=== PATIENT | male | born 1970 | race Caucasian/White ===

== ENCOUNTER → 2016-06-21 | Outpatient (CLI) | payer BC ==
--- NOTE | 2016-06-21 14:46 | US ---
EXAMINATION TYPE: US thyroid st tissue head/neck DATE OF EXAM: 06/21/2016 2:29 PM COMPARISON: NONE CLINICAL HISTORY: E04.9 Goiter. Pt states possible thyroid enlargement seen on outside MRI GLAND SIZE: Right Lobe: 5.5 x 3.0 x 2.9 cm Overall Parenchyma: homogenous Left Lobe: 4.2 x 1.7 x 1.9 cm Overall Parenchyma: homogeneous Isthmus Thickness: 0.4 cm NODULES RIGHT: # of nodules measured on right: 1 1. 3.2 X 2.9 x 2.5 cm isoechoic solid nodule at the lower pole with well-defined margins; This nodu le is wider than tall and shows intranodular vascularity. Prior size: No prior LEFT: # of nodules measured on left: 0 ISTHMUS: # of nodules measured in the isthmus: 0 IMPRESSION: Bilateral neck scanned, no abnormal lymphadenopathy noted. Single, large right thyroid n odule
== END | disposition home or self-care (01) ==
LOC: RADUSWWP 14:10
PROVIDERS: ATTEND Family Medicine
DX: E04.1 Nontoxic single thyroid nodule (principal)
CPT/HCPCS: 76536

== ENCOUNTER → 2016-07-01 | Outpatient (CLI) | payer BC ==
--- NOTE | 2016-07-01 14:23 | NM ---
EXAMINATION TYPE: NM thyroid image only DATE OF EXAM: 07/01/2016 11:29 AM COMPARISON: Ultrasound 06/21/2016 HISTORY: 46-year-old male swelling, mass, palpable abnormality of the head and neck TECHNIQUE: After the intravenous administration of 10.68 mCi Tc 99m Sodium Pertechnetate thyroid imag ing performed in the anterior and oblique projections. FINDINGS: There is a large cold defect involving the mid to lower right thyroid lobe corresponding to the known right thyroid lobe nodule. Remainder of the gland shows homogeneous uptake. No additional abnormalit ies are seen. IMPRESSION: Cold defect corresponding to the known right lobe nodule. FNA can be considered.
== END | disposition home or self-care (01) ==
LOC: RADNMMAIN 10:44
PROVIDERS: ATTEND Surgery
DX: R22.0 Localized swelling, mass and lump, head (principal)
CPT/HCPCS: 84439; 84481; 84443; 78013; A9512

== ENCOUNTER → 2016-07-04 | Outpatient (CLI) | payer BC ==
--- NOTE | 2016-07-04 08:00 | MR ---
EXAMINATION TYPE: MR knee LT wo con DATE OF EXAM: 07/04/2016 7:41 AM COMPARISON: NONE HISTORY: Left knee unspecified internal derangement TECHNIQUE: Multiplanar, multisequence imaging of the left knee is performed without IV contrast. FINDINGS: MEDIAL MENISCUS: Anterior and posterior horns are intact without tear. Mild myxoid degeneration poste rior horn. LATERAL MENISCUS: Anterior and posterior horns are intact without tear.Mild myxoid degeneration poste rior horn. CRUCIATE LIGAMENTS: The anterior and posterior cruciate ligaments are intact and unremarkable. COLLATERAL LIGAMENTS: The medial collateral ligament and lateral collateral ligament complex are inta ct and unremarkable. EXTENSOR MECHANISM: Visualized quadriceps and patellar tendons are intact. EFFUSION: No significant suprapatellar joint effusion. POPLITEAL CYST: No popliteal/roper cyst. TRICOMPARTMENT SPACES: Intact CARTILAGE: Intact BONE MARROW SIGNAL: No focal abnormal marrow signal is appreciated. OTHER: No additional significant abnormality is appreciated. 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 Overall no significant abnormality appreciated.
== END | disposition home or self-care (01) ==
LOC: RADMRIMAIN 06:59
PROVIDERS: ATTEND Family Medicine
DX: M23.306 Other meniscus derangements, unspecified meniscus, right knee (principal)

== ENCOUNTER 2016-07-10 12:05 | Day surgery (SDC) | payer BC ==
[2016-07-10 12:31] VITALS: RESP 14; TEMP 98.3
--- NOTE | 2016-07-10 13:27 | US ---
ULTRASOUND GUIDED FNA THYROID BIOPSY: CLINICAL HISTORY: Right thyroid nodule FINDINGS: The procedure was explained to the patient. The risks, complications, benefits and alternatives were discussed and any questions were answered. Informed consent was obtained. Patient was placed supin e on the ultrasound table and prepped and draped in the usual sterile fashion. Utilizing a 25 gauge needle, five passes were made into the 3.2 cm right thyroid nodule. Patient was stable throughout the procedure. Pathology is pending. All elements of maximal barrier technique were utilized. IMPRESSION: 1. Successful ultrasound guided FNA thyroid biopsy.
[2016-07-10 13:43] VITALS: BP 156/98; PULSE 78
== END 2016-07-10 13:40 | disposition home or self-care (01) ==
LOC: RADPROMAIN 12:05
PROVIDERS: ATTEND Surgery
DX: E04.1 Nontoxic single thyroid nodule (principal)
CPT/HCPCS: 10022; 76942; 88173; 88305

== ENCOUNTER → 2017-06-24 | Outpatient (CLI) | payer BC ==
--- NOTE | 2017-06-24 14:17 | US ---
EXAMINATION TYPE: US thyroid st tissue head/neck DATE OF EXAM: 06/24/2017 COMPARISON: 06/21/2016 CLINICAL HISTORY: E04.1 THYROID NODULE. Follow up nodule, Hx of biopsy= neg GLAND SIZE: Right Lobe: 5.4 x 2.9 x 3.1 cm Overall Parenchyma: heterogenous Left Lobe: 4.1 x 1.9 x 1.9 cm Overall Parenchyma: homogeneous Isthmus Thickness: 0.2 cm NODULES RIGHT: # of nodules measured on right: 1 1. 3.0 X 2.7 x 2.9 cm isoechoic solid nodule at the lower pole with well-defined margins. This nod ule is taller than wide and shows intranodular vascularity. Prior size: 3.2 x 2.9 x 2.5 cm LEFT: # of nodules measured on left: 0 ISTHMUS: # of nodules measured in the isthmus: 0 Bilateral neck scanned, no evidence of lymphadenopathy. IMPRESSION: Stable solid right thyroid nodule. Thyroid glandular enlargement also seen.
== END | disposition home or self-care (01) ==
LOC: RADUSWWP 13:41
PROVIDERS: ATTEND Internal Medicine Endocrinology, Diabetes & Metabolism
DX: E04.1 Nontoxic single thyroid nodule (principal); E04.9 Nontoxic goiter, unspecified
CPT/HCPCS: 76536

== ENCOUNTER → 2018-07-22 | Outpatient (CLI) | payer BC ==
--- NOTE | 2018-07-22 16:35 | US ---
EXAMINATION TYPE: US thyroid st tissue head/neck DATE OF EXAM: 07/22/2018 COMPARISON: Prior exam CLINICAL HISTORY: E04.1 SINGLE THYROID NODULE,E06.3 AUTOIMMUNE THYROIDITIS. follow up exam GLAND SIZE: Right Lobe: 5.5 x 3.1 x 3.7 cm Overall Parenchyma: homogenous Left Lobe: 4.1 x 1.5 x 2.1 cm Overall Parenchyma: homogeneous Isthmus Thickness: 0.2 cm NODULES RIGHT: # of nodules measured on right: 1 1. 3.2 X 2.5 x 3.0 cm isoechoic solid nodule at the mid pole with well-defined margins. This nodul e is wider than tall and shows intranodular vascularity. Prior size: 3.0 x 2.7 x 2.9 cm LEFT: # of nodules measured on left: 0 ISTHMUS: # of nodules measured in the isthmus: 0 Bilateral neck scanned, no evidence of lymphadenopathy. IMPRESSION: Solid nodule right lobe thyroid similar to prior exam.
== END ==
LOC: RADUSWWP 14:31
PROVIDERS: ATTEND Internal Medicine Endocrinology, Diabetes & Metabolism
DX: E04.1 Nontoxic single thyroid nodule (principal)
CPT/HCPCS: 76536